=== PATIENT | male | born 1990 | race Caucasian/White ===

== ENCOUNTER 2016-10-31 13:08 | Emergency (ER) | payer MEDICAID ==
[~2016-10-31] VITALS: Ht 182.9 cm; Wt 70.5 kg
[2016-10-31] MEDS ORDERED: GABA-529 PO (13:26)
[2016-10-31 13:53] LABS: BASOPHILS % (AUTO) 0.5 % (0.0-2.0); EOSINOPHILS % (AUTO) 0.1 % (1.0-6.0); HEMATOCRIT 39.5 % (41-53); HEMOGLOBIN 13.2 g/dL (13.5-17.5); LYMPHOCYTES # (AUTO) 1.7 K/uL (1.0-4.8); LYMPHOCYTES % (AUTO) 21.6 % (22.0-44.0); MEAN CORPUSCULAR HEMOGLOBIN 28.9 pg (26.0-34.0); MEAN CORPUSCULAR HGB CONC 33.5 G/dL (31.0-37.0); MEAN CORPUSCULAR VOLUME 86 fL (80-100); MONOCYTES # (AUTO) 0.8 K/uL (0.1-1.0); MONOCYTES % (AUTO) 9.5 % (2.0-9.0); NEUTROPHILS # (AUTO) 5.4 K/uL (1.8-7.7); NEUTROPHILS % (AUTO) 68.3 % (40.0-70.0); PLATELET COUNT (AUTO) 177 K/uL (150-450); RED BLOOD CELL COUNT(AUTO) 4.57 MIL/uL (4.50-5.90); RED CELL DISTRIBUTION WIDTH 13.3 % (11.5-14.5)
[2016-10-31 14:05] LABS: ANION GAP 9 mmol/L (8-16); CALCIUM, TOTAL 8.3 mg/dL (8.8-10.5); CARBON DIOXIDE 28 mmol/L (22-29); CHLORIDE 105 mmol/L (98-107); CREATININE 0.96 mg/dL (0.60-1.30); GLOMERULAR FILTR. RATE CALC > 60 mL/min (>60); POTASSIUM 3.5 mmol/L (3.5-5.1); SODIUM SERUM 142 mmol/L (136-145); UREA NITROGEN, BLOOD 7 mg/dL (7-18)
[2016-10-31 14:11] LABS: ALANINE AMINOTRANSFERASE 79 U/L (12-78); ALBUMIN 3.7 g/dL (3.4-5.0); ASPARTATE AMINOTRANSFERASE 80 U/L (15-37); BILIRUBIN,TOTAL 0.3 mg/dL (0.1-1.0)
[2016-10-31 14:12] LABS: B-TYPE NATRIURETIC PEPTIDE 23 pg/mL (0-100)
[2016-10-31 14:13] LABS: TROPONIN I 0.04 ng/mL (0.00-0.05)
[2016-10-31 14:15] LABS: SALICYLATE < 2.8 mg/dL (2.8-20.0)
[2016-10-31 14:41] LABS: ACETAMINOPHEN < 2 mcg/mL (10-30)
[2016-10-31] MEDS ORDERED: SODIUM CHLORIDE 0.9% 1,000 ML IV ONE (15:30)
[2016-10-31] MEDS ORDERED: ONDANSETRON HCL 4 MG/2 ML VIAL IVP ONE (15:45)
[2016-10-31 16:48] VITALS: BP 120/75
[2016-10-31 16:52] LABS: APPEARANCE,URINE CLEAR (CLEAR); GLUCOSE, URINE (UA) NEGATIVE (NEGATIVE); KETONES,URINE NEGATIVE (NEGATIVE); LEUKOCYTE ESTERASE ,URINE NEGATIVE (NEGATIVE); OCCULT BLOOD,URINE NEGATIVE (NEGATIVE); PH,URINE 6.5 (5.0-8.0); PROTEIN,URINE TRACE (NEGATIVE)
[2016-10-31 16:58] LABS: ADD UA MICROSCOPIC NO
== END 2016-10-31 17:29 | disposition home or self-care (01) ==
LOC: EMS 13:10
DX: R41.82 Altered mental status, unspecified (principal); R55 Syncope and collapse; F11.10 Opioid abuse, uncomplicated; F10.10 Alcohol abuse, uncomplicated; Y90.1 Blood alcohol level of 20-39 mg/100 ml
CPT/HCPCS: 36415; 80053; 80307; 81003; 82140; 83880; 84484; 85025; 93005; 96361; 96374; 99291; G0480; J2405; J7030; G0481

== ENCOUNTER 2017-04-20 04:54 | Emergency (ER) | payer MEDICAID ==
[~2017-04-20] VITALS: Ht 182.9 cm; Wt 70.5 kg
[~2017-04-20 04:54] MED LIST: GABA-529 PO
[2017-04-20] MEDS ORDERED: SODIUM CHLORIDE 0.9% 1,000 ML IV ONE (06:30)
[2017-04-20] MEDS ORDERED: LORazepam 2 MG/ML VIAL IVP ONE (06:30)
[2017-04-20 07:50] VITALS: BP 137/86
== END 2017-04-20 07:57 | disposition home or self-care (01) ==
LOC: EMS 04:55
DX: F41.9 Anxiety disorder, unspecified (principal); R07.89 Other chest pain; R00.0 Tachycardia, unspecified; F10.10 Alcohol abuse, uncomplicated; F14.90 Cocaine use, unspecified, uncomplicated; Y90.0 Blood alcohol level of less than 20 mg/100 ml
CPT/HCPCS: 36415; 80307; 93005; 96374; 99285; G0480; J2060; J7030